=== PATIENT | male | born 1975 | race Asian ===

== ENCOUNTER 2018-09-09 17:17 | Emergency (ER) | payer BC ==
[~2018-09-09] VITALS: Ht 170.2 cm; Wt 76.7 kg
[2018-09-09 17:19] VITALS: BP 154/101; PULSE 90; RESP 16; Ht 170.2 cm; Wt 76.7 kg
[2018-09-09] MEDS ORDERED: OXYMETAZOLINE 0.05% 15 ML NAS SPRAY NASAL ONE (18:00)
[2018-09-09] MEDS ORDERED: CEPH-443 PO (19:22)
--- NOTE | 2018-09-10 03:10 | ERD ---
ER Documentation Chief Complaint Chief Complaint nosebleed x30 minutes HPI Patient is a 43-year-old male, no past medical history, presents the ER for concerns of epistaxis for last 30 minutes. Patient states he does not remember coughing, sneezing or picking at his nose. He states he was at work and his nose started to bleed. Patient denies any history of blood disorders. Patient denies any trauma or falls. Patient denies taking any blood thinners. ROS All systems reviewed and are negative except as per history of present illness. Medications Home Meds Active Scripts Cephalexin* (Keflex*) 500 Mg Capsule, 500 MG PO TID for 5 Days, CAP Prov:MOR BARNARD PA-C 09/09/18 Allergies Allergies: Coded Allergies: No Known Allergy (Unverified , 09/09/18) PMhx/Soc Medical and Surgical Hx: pt denies Medical Hx, pt denies Surgical Hx Hx Alcohol Use: Yes (occaisonally) Hx Substance Use: No Hx Tobacco Use: No Smoking Status: Never smoker FmHx Family History: No diabetes Physical Exam Vitals Vital Signs Date Temp Pulse Resp B/P (MAP) Pulse Ox O2 O2 Flow FiO2 Time Delivery Rate 09/09/18 98.6 90 16 154/101 99 17:19 (118) Physical Exam GENERAL: Well-developed, well-nourished male. Appears in no acute distress. Speaking in full sentences HEAD: Normocephalic, atraumatic. No deformities or ecchymosis. EYE: Pupils equal, round, and reactive to light. EOMs intact. No conjunctival erythema. No eye discharge. ENT: External ear without any masses or tenderness. TM visualized bilaterally, non-erythematous, non-bulging. Active epistaxis from left nare. No bleeding noted in the right nare. No septal hematoma. No blood noted in posterior oropharynx. Oropharynx is pink without any tonsillar erythema or exudates. No uvula deviation. No kissing tonsils. NECK: Supple. No meningismus. Normal ROM of the neck. LUNG: Clear to auscultation bilaterally. No rhonchi, wheezing, rales or coarse breath sounds. HEART: Regular rate and rhythm. No murmurs, rubs or gallops. EXTREMITES: Equal pulses bilaterally. No peripheral clubbing, cyanosis or edema. No unilateral leg swelling. NEUROLOGIC: Alert and oriented to person, place and time. Moving all four extremities. 5/5 strength in all extremities. Normal speech. Steady gait. SKIN: Normal color. Warm and dry. No rashes or lesions. Result Diagram: 09/09/181857 Results 24 hrs Laboratory Tests Test 09/09/18 18:58 White Blood Count 12.1 10^3/ul Red Blood Count 4.76 10^6/ul Hemoglobin 14.0 g/dl Hematocrit 41.9 % Mean Corpuscular Volume 88.0 fl Mean Corpuscular Hemoglobin 29.4 pg Mean Corpuscular Hemoglobin Concent 33.4 g/dl Red Cell Distribution Width 12.7 % Platelet Count 211 10^3/UL Mean Platelet Volume 10.5 fl Immature Granulocytes % 0.200 % Neutrophils % 80.5 % Lymphocytes % 12.2 % Monocytes % 5.0 % Eosinophils % 1.6 % Basophils % 0.5 % Nucleated Red Blood Cells % 0.0 /100WBC Immature Granulocytes # 0.020 10^3/ul Neutrophils # 9.8 10^3/ul Lymphocytes # 1.5 10^3/ul Monocytes # 0.6 10^3/ul Eosinophils # 0.2 10^3/ul Basophils # 0.1 10^3/ul Nucleated Red Blood Cells # 0.0 10^3/ul Current Medications Medications Dose Sig/Melissa Start Time Status Last (Trade) Ordered Route PRN Stop Time Admin Dose Reason Admin 2 spray ONCE ONCE 09/09/18 DC Oxymetazoline NASAL 18:00 09/09/18 HCl (Afrin 18:01 [place]) Procedures/MDM MEDICAL DECISION MAKING: Patient is a 43-year-old male, no past medical history, presents the ER for concerns of epistaxis from his left nare x30 minutes.. Vital signs were reviewed. Patient is afebrile. Patient was not hypoxic. Patient was hemodynamically stable. Patient denied any falls or trauma. On exam, patient had bleeding from his left nare. Initially nose clamp was placed for 10 minutes. Patient continued to have bleeding. At that time Afrin spray was placed however minimal alleviation of bleeding. Discussed case with Dr. Reid, supervising physician who agreed that Rhino Rocket placement was appropriate. Dr. Reid assisted with the rhino rocket place. Patient was observed after Rhino Rocket placement and no additional bleeding was noted. No blood was noted in the posterior oropharynx. CBC showed no evidence of severe anemia or decreased platelet count. Patient will be discharged home with p rescription for Keflex and advised to return to the ER in 2 days for Rhino Rocket removal. Advised to return to the ER for any new or worsening symptoms. At this time, patient's presentation is most consistent with anterior epistaxis. Low suspicion for nasal trauma, coagulopathy disorder, thrombocytopenia, anemia, posterior epistaxis. Patient was nontoxic, [id number] prior to discharge. PRESCRIPTION: Keflex DISCHARGE: At this time, patient is stable for discharge and outpatient management. I have instructed the patient to follow-up with his/her primary care physician in 1-2 days. I have discussed with the patient the possibility of needing to see a specialist for further workup and imaging studies if symptoms persist. I have instructed the patient to promptly return to the ER for any new or worsening symptoms including increased pain, fever, nausea, vomiting, weakness or LOC. The patient and/or family expressed understanding of and agreement with this plan. All questions were answered. Home care instructions were provided. Disclaimer: Inadvertent spelling and grammatical errors are likely due to EHR/dictation software use and do not reflect on the overall quality of patient care. Also, please note that the electronic time recorded on this note does not necessarily reflect the actual time of the patient encounter. Departure Diagnosis: Primary Impression: Epistaxis Condition: Fair Patient Instructions: Epistaxis (Adult) Referrals: [facility] YOU HAVE RECEIVED A MEDICAL SCREENING EXAM AND THE RESULTS INDICATE THAT YOU DO NOT HAVE A CONDITION THAT REQUIRES URGENT TREATMENT IN THE EMERGENCY DEPARTMENT. FURTHER EVALUATION AND TREATMENT OF YOUR CONDITION CAN WAIT UNTIL YOU ARE SEEN IN YOUR DOCTORS OFFICE WITHIN THE NEXT 1-2 DAYS. IT IS YOUR RESPONSIBILITY TO MAKE AN APPOINTMENT FOR FOLOW-UP CARE. IF YOU HAVE A PRIMARY DOCTOR --you should call your primary doctor and schedule an appointment IF YOU DO NOT HAVE A PRIMARY DOCTOR YOU CAN CALL OUR PHYSICIAN REFERRAL HOTLINE AT IF YOU CAN NOT AFFORD TO SEE A PHYSICIAN YOU CAN CHOSE FROM THE FOLLOWING [facility] [address] [facility]. [facility] [address] [facility]. [facility] [address] [facility]. [facility] [id number] [facility]. [facility] [address] [facility]. [facility]. [address] [facility]. [facility] YOU HAVE RECEIVED A MEDICAL SCREENING EXAM AND THE RESULTS INDICATE THAT YOU DO NOT HAVE A CONDITION THAT REQUIRES URGENT TREATMENT IN THE EMERGENCY DEPARTMENT. FURTHER EVALUATION AND TREATMENT OF YOUR CONDITION CAN WAIT UNTIL YOU ARE SEEN IN YOUR DOCTORS OFFICE WITHIN THE NEXT 1-2 DAYS. IT IS YOUR RESPONSIBILITY TO MAKE AN APPOINTMENT FOR FOLOW-UP CARE. IF YOU HAVE A PRIMARY DOCTOR --you should call your primary doctor and schedule and appointment IF YOU DO NOT HAVE A PRIMARY DOCTOR YOU CAN CALL OUR PHYSICIAN REFERRAL HOTLINE AT . IF YOU CAN NOT AFFORD TO SEE A PHYSICIAN YOU CAN CHOSE FROM THE FOLLOWING [facility] INSTITUTIONS: [facility] [address] [place] [address] [facility] [address] [place] [address] [facility] + [facility] [address] [place] [address] [facility] Additional Instructions: Rhino Rocket removal advised in 2 days. Return here or follow-up with your primary care physician. Call your primary care doctor TOMORROW for an appointment during the next 1-2 days.See the doctor sooner or return here if your condition worsens before your appointment time. MOR BARNARD PA-C Sep 10, 2018 03:02
== END 2018-09-09 19:34 | disposition home or self-care (01) ==
LOC: FTE 17:17
DX: R04.0 Epistaxis (principal)
CPT/HCPCS: 85025

== ENCOUNTER 2018-09-11 09:42 | Emergency (ER) | payer BC ==
[~2018-09-11] VITALS: Ht 160 cm; Wt 80.0 kg
[~2018-09-11 09:42] MED LIST: CEPH-443 PO
[2018-09-11 09:48] VITALS: Ht 160 cm; Wt 80.0 kg
[2018-09-11 11:14] VITALS: BP 132/84; PULSE 81; RESP 18
--- NOTE | 2018-09-11 15:53 | ERD ---
ER Documentation Chief Complaint Chief Complaint HERE FOR REMOVAL OF LEFT NOSTRIL RHINO ROCKET HPI This is a 43-year-old male presents for removal of his Rhino Rocket from his left nare. Patient had an episode of epistaxis 2 days ago that required Rhino Rocket placement. He has had no further episodes of nasal bleeding. He is complaining of mild discomfort around his nose and his left eye, but otherwise feels fine. He is currently taking prophylactic Keflex. He denies any facial swelling, headache, fevers, chills, nausea or vomiting. No new or recent nasal trauma. No other concerns. ROS All systems reviewed and are negative except as per history of present illness. Medications Home Meds Active Scripts Cephalexin* (Keflex*) 500 Mg Capsule, 500 MG PO TID for 5 Days, CAP Prov:MOR BARNARD PA-C 09/09/18 Allergies Allergies: Coded Allergies: No Known Allergy (Unverified , 09/11/18) PMhx/Soc Medical and Surgical Hx: pt denies Medical Hx, pt denies Surgical Hx Hx Alcohol Use: Yes (occaisonally) Hx Substance Use: No Hx Tobacco Use: No Smoking Status: Never smoker FmHx Family History: No diabetes Physical Exam Vitals Vital Signs Date Temp Pulse Resp B/P (MAP) Pulse Ox O2 O2 Flow FiO2 Time Delivery Rate 09/11/18 98.1 81 18 132/84 99 Room Air 11:14 (100) 09/11/18 98.1 88 18 145/87 99 09:48 (106) Physical Exam Const: No acute distress Head: Atraumatic Eyes: Normal Conjunctiva. EOMI. PERRL. ENT: Normal External Ears and Mouth. No periorbital swelling. No facial swelling. + Left nare with Rhino Rocket in place. Posterior oropharynx is clear. Neck: Full range of motion. No meningismus. Resp: Clear to auscultation bilaterally Neur: Awake and alert Psych: Normal Mood and Affect Procedures/MDM MEDICAL DECISION MAKING: This is a 43-year-old male presents for removal of his Rhino Rocket status post epistaxis 2 days ago. CBC at that time was unremarkable. Rhino Rocket was removed and pt subsequently had mild bleeding from his left nare. This spontaneously improved. He was observed in the ED for over 30 minutes without any further bleeding. Patient is otherwise hemodynamically stable. Vital signs are normal.He can be discharged home with close outpatient follow-up. Strict return precautions were discussed. He was told to finish his course of antibiotics. PRESCRIPTIONS: None SPECIALIST FOLLOW UP RECOMMENDED: None Patient has been advised to follow up with primary care in 1-2 days. Departure Diagnosis: Primary Impression: Epistaxis Additional Impression: Encounter for wound re-check Condition: Stable Patient Instructions: Epistaxis (Adult) Referrals: [facility] YOU HAVE RECEIVED A MEDICAL SCREENING EXAM AND THE RESULTS INDICATE THAT YOU DO NOT HAVE A CONDITION THAT REQUIRES URGENT TREATMENT IN THE EMERGENCY DEPARTMENT. FURTHER EVALUATION AND TREATMENT OF YOUR CONDITION CAN WAIT UNTIL YOU ARE SEEN IN YOUR DOCTORS OFFICE WITHIN THE NEXT 1-2 DAYS. IT IS YOUR RESPONSIBILITY TO MAKE AN APPOINTMENT FOR FOLOW-UP CARE. IF YOU HAVE A PRIMARY DOCTOR --you should call your primary doctor and schedule an appointment IF YOU DO NOT HAVE A PRIMARY DOCTOR YOU CAN CALL OUR PHYSICIAN REFERRAL HOTLINE AT IF YOU CAN NOT AFFORD TO SEE A PHYSICIAN YOU CAN CHOSE FROM THE FOLLOWING [facility] [address] [facility]. [facility] [address] [facility]. [facility] [address] [facility]. [facility] [address] [facility] [address] [facility]. [facility]. [address] [facility]. [facility] YOU HAVE RECEIVED A MEDICAL SCREENING EXAM AND THE RESULTS INDICATE THAT YOU DO NOT HAVE A CONDITION THAT REQUIRES URGENT TREATMENT IN THE EMERGENCY DEPARTMENT. FURTHER EVALUATION AND TREATMENT OF YOUR CONDITION CAN WAIT UNTIL YOU ARE SEEN IN YOUR DOCTORS OFFICE WITHIN THE NEXT 1-2 DAYS. IT IS YOUR RESPONSIBILITY TO MAKE AN APPOINTMENT FOR FOLOW-UP CARE. IF YOU HAVE A PRIMARY DOCTOR --you should call your primary doctor and schedule and appointment IF YOU DO NOT HAVE A PRIMARY DOCTOR YOU CAN CALL OUR PHYSICIAN REFERRAL HOTLINE AT . IF YOU CAN NOT AFFORD TO SEE A PHYSICIAN YOU CAN CHOSE FROM THE FOLLOWING [facility] INSTITUTIONS: [facility] [address] [place] [address] [facility] [address] [place] [address] [facility] + [facility] [address] [place] [address] Additional Instructions: Apply pressure, avoid from blowing too hard or picking at your nose. Return here for any prolonged bleeding. Lightheadedness or any other concerns. finish the rest of your antibiotics. LEELA HAYWARD PA-C Sep 11, 2018 15:46
[2018-09-12] MEDS ORDERED: AMOX1TAB10 PO (14:59)
== END 2018-09-11 11:53 | disposition home or self-care (01) ==
LOC: FTE 09:42
DX: R04.0 Epistaxis (principal); Z48.00 Encounter for change or removal of nonsurgical wound dressing
CPT/HCPCS: 99282

== ENCOUNTER 2018-09-12 13:30 | Emergency (ER) | payer BC ==
[~2018-09-12] VITALS: Ht 170.2 cm; Wt 74.9 kg
[2018-09-12 13:35] VITALS: BP 138/138; RESP 18; Ht 170.2 cm; Wt 74.9 kg
[2018-09-12] MEDS ORDERED: AMOX1TAB10 PO (14:59)
[2018-09-12 15:09] VITALS: PULSE 90
--- NOTE | 2018-09-12 15:16 | ERD ---
ER Documentation Chief Complaint Chief Complaint rhino rocket removed from lt nostril yesterday, still feels something in HPI 43-year-old male presenting with potential retained foreign body after Rhino Rocket was removed from his left nostril. Patient states he is unable to breathe through his left nostril. He had a Rhino Rocket placed last week when he had epistaxis and had it removed yesterday. He states his pain and bleeding have improved. Denies other medical problems. NKDA. Surgical history denies. Social history denies ROS All systems reviewed and are negative except as per history of present illness. Medications Home Meds Active Scripts Amoxicillin/Potassium Clav (Amox-Clav 875-125 mg Tablet) 875-125 mg Tab, 1 TAB PO BID for 7 Days, #14 TAB Prov:ELLEN VELEZ PA-C 09/12/18 Cephalexin* (Keflex*) 500 Mg Capsule, 500 MG PO TID for 5 Days, CAP Prov:MOR BARNARD PA-C 09/09/18 Allergies Allergies: Coded Allergies: No Known Allergy (Unverified , 09/11/18) PMhx/Soc Medical and Surgical Hx: pt denies Medical Hx, pt denies Surgical Hx Hx Alcohol Use: Yes (occaisonally) Hx Substance Use: No Hx Tobacco Use: No FmHx Family History: No diabetes, No coronary disease, No other Physical Exam Vitals Vital Signs Date Temp Pulse Resp B/P (MAP) Pulse Ox O2 O2 Flow FiO2 Time Delivery Rate 09/12/18 90 96 Room Air 15:09 09/12/18 98.6 113 18 138/138 64 13:35 (138) Physical Exam GENERAL: The patient is well-appearing, well-nourished, in no acute distress HEENT: Atraumatic. Conjunctivae are pink. Pupils equal, round, and reactive to light. There is no scleral icterus. Tympanic membranes clear bilaterally. Oropharynx clear. White foreign body noted within the nasal passage. No active bleeding. NECK: C-spine is soft and supple. There is no meningismus. There is no cervical lymphadenopathy. CHEST: Clear to auscultation bilaterally. There are no rales, wheezes or rhonchi. HEART: Regular rate and rhythm. No murmurs, clicks, rubs or gallops. Procedures/MDM ER course: Small amount of tissue moved from the nostril. There may be some continued retained foreign body however it is unclear and I do not not want to c ause injury. Patient is recommended to follow-up with ENT. I attempted to remove foreign body with a Rhino Rocket and Dockery extractor. Patient is told symptoms change or worsen to return to the ER however is recommended ENT for higher level of care and evaluation. Patient will be placed on prophylactic antibiotics. All questions answered at discharge DM: 43-year-old male presenting with possible retained foreign body. Small amount of foreign body was removed at today's visit however patient is recomme nded to follow-up with ENT within the next few days for further evaluation. Patient be placed on continue antibiotics to prophylax against infection. Patient is discharged with strict ER precautions. All questions answered at discharge Departure Diagnosis: Primary Impression: Foreign body of nose Condition: Stable Patient Instructions: Foreign Body, Nose Referrals: JENNIE SEQUEIRA MD Additional Instructions: FOLLOW UP WITH YOUR PRIMARY CARE PHYSICIAN TOMORROW.Return to this facility if you are not improving as expected. ELLEN VELEZ PA-C Sep 12, 2018 15:16
== END 2018-09-12 15:17 | disposition home or self-care (01) ==
LOC: FTE 13:30
DX: T17.1XXA Foreign body in nostril, initial encounter (principal); X58.XXXA Exposure to other specified factors, initial encounter; Y92.9 Unspecified place or not applicable